=== PATIENT | female | born 1980 | race Caucasian/White ===

== ENCOUNTER 2016-05-29 09:40 | Emergency (ER) | payer MEDICAID, OTHER ==
[~2016-05-29] VITALS: Ht 157.5 cm; Wt 69.0 kg
[~2016-05-29 09:40] MED LIST: PERC7.5T13 PO; PROM25TA5 PO
[2016-05-29 09:44] VITALS: BP 132/88; PULSE 114; RESP 16; TEMP 98.9; O2SAT 99
--- NOTE | 2016-05-29 10:37 | PD ---
HPI Chief Complaint: Cold / Flu Symptoms Time Seen by Provider: 10:05 Travel History International Travel<30 days: No Contact w/Intl Traveler<30days: No Traveled to known affect area: No History of Present Illness HPI 35yo F with no significant PMH presents to the ED with c/o nasal congestion, throat pain, cough for 2 days. Pt states had a cold and similar symptoms. Pt is a cig smoker. Denies any fever, chest pain, sob, n/v, abdominal pain, diarrhea, weakness or numbness. PFSH Past Medical History Chest Pain: Yes Diminished Hearing: No GERD: Yes Immunizations Current: Yes ?: Not LMP: IRREG : 2 Para: 2 Tubal Ligation: Yes Past Surgical History Section: Yes Social History Alcohol Use: No Tobacco Use: Yes Substance Use: No Allergies-Medications (Allergen,Severity, Reaction): Coded Allergies: Septra (Verified Allergy, Severe, HIVES, 05/29/16) Reported Meds & Prescriptions Reported Meds & Active Scripts Active No Active Prescriptions or Reported Medications Review of Systems Except as stated in HPI: all other systems reviewed are Neg Physical Exam Narrative GENERAL: 35yo F not in distress. SKIN: Warm and dry. HEAD: Atraumatic. Normocephalic. EYES: Pupils equal and round. No scleral icterus. No injection or drainage. ENT: Throat: Clear. TM wnl bilaterally. NECK: Trachea midline. No JVD. CARDIOVASCULAR: Regular rate and rhythm. No murmur appreciated. RESPIRATORY: No accessory muscle use. Clear to auscultation. Breath sounds equal bilaterally. GASTROINTESTINAL: Abdomen soft, non-tender, nondistended. MUSCULOSKELETAL: No obvious deformities. No clubbing. No cyanosis. No edema. NEUROLOGICAL: Awake and alert. No obvious cranial nerve deficits. Motor grossly within normal limits. Normal speech. PSYCHIATRIC: Appropriate mood and affect; insight and judgment normal. Data Data Last Documented VS Vital Signs Date Time Temp Pulse Resp B/P Pulse Ox O2 Delivery O2 Flow Rate FiO2 05/29/16 11:58 88 18 110/76 99 05/29/16 09:44 98.9 Orders Acetaminophen 650 Mg/20 Ml Liq (Tylenol (05/29/16 10:45) Pseudoephedrine (Sudafed) (05/29/16 10:45) [facility] Medical Decision Making Medical Screen Exam Complete: Yes Emergency Medical Condition: Yes Differential Diagnosis URI vs. bronchitis Narrative Course 35yo well appearing female with URI symptoms. Pt is a cigarette smoker so will give azithromycin. Pt given acetaminophen and sudafed with improvement of symptoms. Return precautions given. Diagnosis Primary Impression: URI (upper respiratory infection) Qualified Code: J06.9 - Upper respiratory tract infection, unspecified type Patient Instructions: General Instructions Departure Forms: Tests/Procedures Additional Instructions: Please follow up with your PMD in 3-7 days. Return to the ED if symptoms worsen. Med/Other Pt SpecificInfo: Prescription(s) given Scripts Azithromycin (Zithromax Z-Markus)250 Mg [id number] Mg PO DIRECTED #1 DSPK Ref 0 500 MG (2 tabs) day 1, then 1 tab days 2-5. Prov:Hilaria Oliva DO 05/29/16 Acetaminophen (Acetaminophen Extra Strength)500 Mg [id number] Mg PO Q6H PRN (PAIN SCALE 1 TO 4) #20 TAB Ref 0 Prov:Hilaria Oliva DO 05/29/16 Pseudoephedrine (Sudafed)30 Mg Tab30 Mg PO Q6H PRN (NASAL CONGESTION) 3 Days Ref 0 Prov:Hilaria Oliva DO 05/29/16 Disposition: 01 DISCHARGE HOME Condition: Stable Hilaria Oliva DO May 29, 2016 10:37
[2016-05-29] MEDS ORDERED: PSEUDOEPHEDRINE HCL 30 MG TAB PO ONE (10:45)
[2016-05-29] MEDS ORDERED: ACETAMINOPHEN 650 MG/20.3 ML UDC PO ONE (10:45)
[2016-05-29 11:58] VITALS: BP 110/76; PULSE 88; RESP 18; O2SAT 99
[2016-05-29] MEDS ORDERED: ACET500T36 PO (12:06)
[2016-05-29] MEDS ORDERED: SUDA30TA2 PO (12:06)
[2016-05-29] MEDS ORDERED: ZITHTAB PO (12:07)
== END 2016-05-29 12:14 | disposition home or self-care (01) ==
LOC: PHEFT 09:40
DX: J06.9 Acute upper respiratory infection, unspecified (principal); F17.210 Nicotine dependence, cigarettes, uncomplicated
CPT/HCPCS: 99283

== ENCOUNTER 2017-04-19 07:54 | Emergency (ER) | payer BC, OTHER ==
[~2017-04-19] VITALS: Ht 157.5 cm; Wt 73.6 kg
[~2017-04-19 07:54] MED LIST changes: +ACET500T36 PO; -PERC7.5T13 PO; -PROM25TA5 PO; +SUDA30TA2 PO; +ZITHTAB PO
[2017-04-19 07:58] VITALS: BP 129/65; PULSE 100; RESP 18; TEMP 97.8; O2SAT 99
--- NOTE | 2017-04-19 08:14 | PD ---
HPI Chief Complaint: Cold / Flu Symptoms Time Seen by Provider: 08:07 Travel History International Travel<30 days: No Contact w/Intl Traveler<30days: No Traveled to known affect area: No History of Present Illness HPI 36-year-old female complains of cough for about 8 days. The cough can be productive at times. Symptoms have gotten worse. She has had similar episodes but none this severe. No chest pain or shortness of breath. No sore throat. Positive rhinitis/postnasal drip reported. Timing constant. Severity moderate. Patient resumed a smoking habit approximately 6 months prior however intends to quit seeing. Headache after night of coughing is reported. PFSH Past Medical History Depression: Yes Chest Pain: Yes Diminished Hearing: No GERD: Yes Immune Disorder: Yes (LUPUS) Immunizations Current: Yes Influenza Vaccination: No ?: Not : 2 Para: 2 Tubal Ligation: Yes Past Surgical History Section: Yes Social History Alcohol Use: No Tobacco Use: Yes (04/18 ppd) Substance Use: No Allergies-Medications (Allergen,Severity, Reaction): Coded Allergies: sulfamethoxazole (Unverified Allergy, Severe, HIVES, 04/19/17) trimethoprim (Unverified Allergy, Severe, HIVES, 04/19/17) Reported Meds & Prescriptions Reported Meds & Active Scripts Active Medrol Dosepak (Methylprednisolone) 4 Mg Dspk 4 Mg PO DIRECTED Per Pharmacist direction Cetirizine (Cetirizine HCl) 10 Mg Tab 10 Mg PO DAILY Tessalon Perles (Benzonatate) 100 Mg Cap 100 Mg PO TID PRN Proventil Hfa 6.7 GM Inh (Albuterol Sulfate) 90 Mcg/Act Aer 2 Puff INH Q6H PRN Zithromax Z-Markus (Azithromycin) 250 Mg Dspk 250 Mg PO DIRECTED 500 MG (2 tabs) day 1, then 1 tab days 2-5. Reported B Complex Sublingual Liquid (Vit B2/Niacin/B-6/B-12/D-Panth) 20-1.2MG/1 Liquid 1 Appl SL DAILY Prozac (Fluoxetine HCl) 20 Mg Cap 20 Mg PO HS Plaquenil (Hydroxychloroquine Sulfate) 200 Mg Tab 200 Mg PO BID Take with food Review of Systems General / Constitutional: No: Fever Cardiovascular: No: Chest Pain or Discomfort Respiratory: Positive: Cough Physical Exam Narrative GENERAL: 36-year-old female pleasant SKIN: Focused skin assessment warm/dry. HEAD: Atraumatic. Normocephalic. EYES: Pupils equal and round. No scleral icterus. No injection or drainage. ENT: No nasal bleeding or discharge. Mucous membranes pink and moist. Posterior oropharynx is pink without asymmetry or deviation soft palate NECK: Trachea midline. No JVD. CARDIOVASCULAR: Regular rate and rhythm. No murmur appreciated. RESPIRATORY: The lungs are clear. There is no tachypnea. Data Data Last Documented VS Vital Signs Date Time Temp Pulse Resp B/P (MAP) Pulse Ox O2 Delivery O2 Flow Rate FiO2 04/19/17 08:07 16 99 Room Air 04/19/17 07:58 97.8 100 129/65 (86) VS reviewed Orders Orders Ed Discharge Order (04/19/17 08:14) MDM Medical Decision Making Medical Screen Exam Complete: Yes Emergency Medical Condition: Yes Medical Record Reviewed: Yes Differential Diagnosis URI, PNA, bronchitis, Postnasal drip Narrative Course Likely viral uri given duration possible bacterial etiology not excluded element of post nasal drip also of concern scripts as below Diagnosis Primary Impression: Viral syndrome Additional Impressions: Headache in front of head URI (upper respiratory infection) Qualified Codes: J06.9 - Acute upper respiratory infection, unspecified; B97.89 - Other viral agents as the cause of diseases classified elsewhere Referrals: Primary Care Physician Med/Other Pt SpecificInfo: Prescription(s) given Scripts Methylprednisolone Dosepak (Medrol Dosepak) 4 Mg Dspk 4 MG PO DIRECTED, #1 DSPK 0 Refills Per Pharmacist direction Prov: Tj Angel MD 04/19/17 Cetirizine (Cetirizine) 10 Mg Tab 10 MG PO DAILY for Allergies, #20 TAB 0 Refills Prov: Tj Angel MD 04/19/17 Benzonatate (Tessalon Perles) 100 Mg Cap 100 MG PO TID Y for COUGH, #14 CAP 0 Refills Prov: Tj Angel MD 04/19/17 Albuterol 6.7 GM Inh (Proventil Hfa 6.7 GM Inh) 90 Mcg/Act Aer 2 PUFF INH Q6H Y for SHORTNESS OF BREATH, #1 INHALER 0 Refills Prov: Tj Angel MD 04/19/17 Azithromycin (Zithromax Z-Markus) 250 Mg Dspk 250 MG PO DIRECTED for Infection, #1 DSPK 0 Refills 500 MG (2 tabs) day 1, then 1 tab days 2-5. Prov: Tj Angel MD 04/19/17 Disposition: 01 DISCHARGE HOME Condition: Stable Tj Angel MD Apr 19, 2017 08:14
[2017-04-19] MEDS ORDERED: PROZ20CA11 PO (08:15)
[2017-04-19] MEDS ORDERED: B-COSUB2 SL (08:15)
[2017-04-19] MEDS ORDERED: PLAQ200T PO (08:15)
[2017-04-19] MEDS ORDERED: ALBU6.7H INH (08:23)
[2017-04-19] MEDS ORDERED: MEDR4PAK PO (08:23)
[2017-04-19] MEDS ORDERED: CETI10 PO (08:23)
[2017-04-19] MEDS ORDERED: BENZ100 PO (08:23)
[2017-04-19] MEDS ORDERED: ZITHTAB PO (08:23)
== END 2017-04-19 08:43 | disposition home or self-care (01) ==
LOC: PHED 07:54
DX: J06.9 Acute upper respiratory infection, unspecified (principal); R51 Headache; F32.9 Major depressive disorder, single episode, unspecified; K21.9 Gastro-esophageal reflux disease without esophagitis; M32.9 Systemic lupus erythematosus, unspecified; F17.200 Nicotine dependence, unspecified, uncomplicated; Z79.899 Other long term (current) drug therapy; Z88.2 Allergy status to sulfonamides; Z88.8 Allergy status to other drugs, medicaments and biological substances
CPT/HCPCS: 99284